=== PATIENT | male | born 1990 | race Asian ===

== ENCOUNTER 2021-04-21 12:33 | Emergency (ER) | payer OTHER ==
[~2021-04-21] VITALS: Ht 165.1 cm; Wt 67.7 kg
--- NOTE | 2021-04-21 13:10 | PHYS DOC ---
General Adult EDM: Chief Complaint: BACK PAIN OR INJURY HPI: HPI: Patient is a 30 year old male without pertinent past medical history who presents with right-sided lower back pain. 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 On Wednesday morning he woke up with right lower back pain. He does not recall a specific injury or straining episode. Pain does not radiate. Does not go down the legs. Has been constant and is worse with prolonged sitting, standing, or laying in one position for a long time. Has not tried any medications. Denies any weakness, numbness in the legs. No bowel/bladder incontinence or retention. No saddle anesthesia. No fever/chills. No history of IVDU. No immunosuppression conditions or medications. No history of back surgery. Review of Systems: Review of Systems: Constitutional: Denies fever or chills. [] Eyes: Denies change in visual acuity. [] HENT: Denies nasal congestion or sore throat. [] Respiratory: Denies cough or shortness of breath. [] Cardiovascular: Denies chest pain or edema. [] GI: Denies abdominal pain, nausea, vomiting, bloody stools or diarrhea. [] : Denies dysuria. [] Musculoskeletal: Reports right lower back pain. Denies joint pain. [] Integument: Denies rash. [] Neurologic: Denies headache, focal weakness or sensory changes. [] Endocrine: Denies polyuria or polydipsia. [] Lymphatic: Denies swollen glands. [] Psychiatric: Denies depression or anxiety. [] Heart Score: C/O Chest Pain: No Physical Exam: PE: Constitutional: Well developed, well nourished, no acute distress, non-toxic appearance. [] HENT: Normocephalic, atraumatic, Eyes: conjunctiva normal, no discharge. [] Neck: Normal range of motion, no tenderness, supple, no stridor. [] Cardiovascular:Heart rate regular rhythm, no murmur [] Lungs & Thorax: Bilateral breath sounds clear to auscultation [] Abdomen: Bowel sounds normal, soft, no tenderness, no masses, no pulsatile masses. [] Skin: Warm, dry, no erythema, no rash. [] Back: No midline tenderness, + right-sided paraspinal lumbar tenderness to palpation. Extremities: No tenderness, no cyanosis, no clubbing, ROM intact, no edema. [] Neurologic: Alert and oriented X 3, normal motor function, normal sensory function, no focal deficits noted. [] Specifically 5/5 strength bilaterally in: Hip flexion Hip adduction Knee flexion/extension Dorsiflexion/plantarflexion of the ankle Dorsiflexion of the great toe Psychologic: Affect normal, judgement normal, mood normal. [] EKG: EKG: [] Radiology/Procedures: Radiology/Procedures: [] Course & Med Decision Making: Course & Med Decision Making Pertinent Labs and Imaging studies reviewed. (See chart for details) Patient is a 30-year-old male who presents with right sided lumbar back pain without radicular symptoms. He has no back pain red flags such as trauma, fever/chills, weakness, bowel/bladder symptoms, saddle anesthesia, IVDU, immunosuppressive disorders, cancer history, or history of back surgery. He is neurologically intact. Do not feel that he would benefit from imaging in the emergency department. He has no indication for emergent MRI. Do not feel that x-ray or CT imaging will be helpful, as I feel this is most likely a muscular strain. Will provide with ibuprofen and cyclobenzaprine. [id number] Eliana Disclaimer: Eliana Disclaimer: This electronic medical record was generated, in whole or in part, using a voice recognition dictation system. Departure Departure Impression: Primary Impression: Lumbar back pain Disposition: HOME / SELF CARE / HOMELESS Condition: STABLE Patient Instructions: Low Back Strain with [facility] Cyclobenzaprine Hcl (CYCLOBENZAPRINE HCL) 10 Mg Tablet 1 TAB PO TID for 7 Days, #21 TAB 0 Refills Prov: DEBORAH HENNESSY MD 04/21/21 Ibuprofen (IBUPROFEN) 600 Mg Tablet 600 MG PO PRN Q6HRS PRN for INFLAMMATION for 7 Days, TAB 0 Refills Prov: DEBORAH HENNESSY MD 04/21/21 DEBORAH HENNESSY MD Apr 21, 2021 13:10
[2021-04-21] MEDS ORDERED: CYCLOBENZAPRINE 10 MG TABLET. PO ONE (13:15)
[2021-04-21] MEDS ORDERED: IBUPROFEN 200 MG TABLET. PO ONE (13:15)
[2021-04-21] MEDS ORDERED: IBUP-1007 PO (13:44)
[2021-04-21] MEDS ORDERED: CYCL10TA19 PO (13:44)
[2021-04-21 13:52] VITALS: BP 112/64
== END 2021-04-21 14:14 | disposition home or self-care (01) ==
LOC: ER 12:33
DX: M54.50 Low back pain, unspecified (principal)
CPT/HCPCS: 99284